=== PATIENT | female | born 1990 | race Caucasian/White ===

== ENCOUNTER 2021-06-23 18:51 | Emergency (ER) | payer BC, OTHER ==
[2021-06-23 19:08] VITALS: BMI 42.3
[2021-06-23 19:09] VITALS: TEMP 97.8
[2021-06-23] MEDS ORDERED: SODIUM CHLORIDE 0.9% 500 ML INFUS.BAG IV ONE (19:56)
[2021-06-23 20:15] LABS: BASO % 0.5 % (0-2.0); EOS % 3.2 % (0-4.5); HEMATOCRIT 37.5 % (32.4-45.2); HEMOGLOBIN 12.7 GM/dL (10.7-15.3); LYMPH % 22.7 % (8-40); MCH 27.9 pg (25.7-33.7); MCHC 33.8 g/dl (32.0-36.0); MEAN CELL VOLUME 82.3 fl (80-96); MEAN PLT VOLUME 7.9 fl (7.5-11.1); MONO % 5.4 % (3.8-10.2); NEUT % 68.2 % (42.8-82.8); PLATELET COUNT 373 10^3/uL (134-434); RBC 4.55 M/mm3 (3.60-5.2); WHITE BLOOD COUNT 9.5 K/mm3 (4.0-10.0)
[2021-06-23] MEDS ORDERED: METOCLOPRAMIDE HCL INJECTION 10 MG/2 ML VIAL IVPUSH ONE (20:17)
[2021-06-23] MEDS ORDERED: ACETAMINOPHEN 500 MG TABLET (FP) PO ONE (20:17)
[2021-06-23] MEDS ORDERED: METOCLOPRAMIDE HCL INJECTION 10 MG/2 ML VIAL ONE (20:25)
[2021-06-23 20:31] LABS: CALCIUM 9.1 mg/dL (8.5-10.1)
[2021-06-23 20:32] LABS: ALBUMIN 3.8 g/dl (3.4-5.0); BLOOD UREA NITROGEN 7.9 mg/dL (7-18)
[2021-06-23] MEDS ORDERED: ACETAMINOPHEN 500 MG TABLET (FP) ONE (20:34)
[2021-06-23 20:35] LABS: CREATININE 0.7 mg/dL (0.55-1.3)
[2021-06-23 20:37] LABS: BILIRUBIN,TOTAL 0.3 mg/dL (0.2-1); TOT PROT 7.8 g/dl (6.4-8.2)
[2021-06-23 22:45] VITALS: BP 127/81; PULSE 87
== END 2021-06-23 22:46 | disposition home or self-care (01) ==
LOC: JER 18:51
PROC: 3E033GC Introduction of Other Therapeutic Substance into Peripheral Vein, Percutaneous Approach (ICD-10-PCS; principal; 2021-06-23)
DX: R42 Dizziness and giddiness (principal); R51.9 Headache, unspecified
CPT/HCPCS: 36415; 70450-TC; 80053; 85025; 93005; 93010; 99285-25